=== PATIENT | male | born 1950 | race Caucasian/White ===

== ENCOUNTER 2016-09-30 19:07 | Inpatient (IN) | payer MEDICARE ==
[~2016-09-30] VITALS: Ht 180.3 cm; Wt 66.0 kg
[~2016-09-30 19:07] MED LIST: Folic Acid PO; MULT-484 PO; SERT50TA5 PO; THIA100T6 PO
[2016-09-30] MEDS ORDERED: SODIUM CHLORIDE FLUSH 10ML SYR IVF ONE (20:00)
[2016-09-30] MEDS ORDERED: SODIUM CHLORIDE 0.9% 1,000ML IVBOLUS ONE ×2 (20:00→20:30)
[2016-09-30] MEDS ORDERED: MORPHINE SULFATE 4 MG/ML, 1ML IVPush PRN (20:00)
[2016-09-30] MEDS ORDERED: ONDANSETRON 2MG/ML, 2ML IVPush ONE (20:00)
[2016-09-30] MEDS ORDERED: FAMOTIDINE 20 MG/2 ML IVP ONE (20:00)
[2016-09-30 20:10] LABS: HEMOGLOBIN 16.4 g/dL (13.7-18.0)
[2016-09-30 20:24] LABS: BLOOD UREA NITROGEN 2 mg/dL (7-18)
[2016-09-30 20:27] LABS: ASPARTATE AMINO TRANSFERASE 35 U/L (15-37)
[2016-09-30 20:37] LABS: MONOS WITH VACUOLES 1+
[2016-09-30] MEDS ORDERED: FAMOTIDINE 20 MG/2 ML ONE (20:54)
[2016-09-30] MEDS ORDERED: ONDANSETRON 2MG/ML, 2ML ONE (20:54)
[2016-09-30] MEDS ORDERED: MORPHINE SULFATE 4 MG/ML, 1ML ONE (20:54)
[2016-09-30] MEDS ORDERED: MAALOX/HYOSCYAMINE/LIDOCAINE 45 ML BOTTLE PO ONE (22:30)
[2016-09-30] MEDS ORDERED: MAALOX/HYOSCYAMINE/LIDOCAINE 45 ML BOTTLE ONE (22:31)
[2016-09-30] MEDS ORDERED: DOCUSATE 100 MG CAPSULE PO PRN (23:30)
[2016-09-30] MEDS ORDERED: LORazepam 2 MG/ML, 1ML IV PRN ×5 (23:30)
[2016-09-30] MEDS ORDERED: PROMETHAZINE 12.5 MG SUPP PR PRN (23:30)
[2016-10-01] MEDS ORDERED: POTASSIUM CHLORIDE 20 MEQ in SODIUM CHLORIDE 0.9% 250 ML IV ONE
[2016-10-01] MEDS: SODIUM CHLORIDE 0.9% 1,000 ML IV SCH ×3 (02:23→16:38)
[2016-10-01] MEDS ORDERED: LORazepam 2 MG/ML, 1ML ONE (05:02)
[2016-10-01] MEDS ORDERED: ONDANSETRON 2MG/ML, 2ML ONE (05:02)
[2016-10-01] MEDS: ONDANSETRON 2MG/ML, 2ML IV PRN (05:06)
[2016-10-01 08:30] VITALS: BP 111/67
[2016-10-01] MEDS: MULTIVITAMINS/MINERALS TABLET PO SCH (09:00)
[2016-10-01] MEDS ORDERED: LORazepam 1MG TABLET PO PRN ×3 (09:00)
[2016-10-01] MEDS ORDERED: LORazepam 2 MG/ML, 1ML IV PRN ×3 (09:00)
[2016-10-01] MEDS: POTASSIUM CHLORIDE 20 MEQ, MAGNESIUM SULFATE 1 GM, MVI ADULT 10 ML, THIAMINE 100 MG, FO... IV SCH (09:48)
[2016-10-01] MEDS: NICOTINE 21 MG/24 HR PATCH.TD24 TD SCH (09:49)
[2016-10-01 12:49] VITALS: BP 106/57
[2016-10-01] MEDS: LORazepam 2 MG/ML, 1ML IV PRN (16:38)
[2016-10-01 16:51] LABS: DAU SCREEN DISCLAIMER
[2016-10-01 20:37] VITALS: BP 117/71
[2016-10-02] MEDS: LORazepam 1MG TABLET PO PRN (01:40)
[2016-10-02 01:48] VITALS: BP 128/75
[2016-10-02 04:23] LABS: HEMOGLOBIN 14.8 g/dL (13.7-18.0)
[2016-10-02 04:37] LABS: BLOOD UREA NITROGEN 7 mg/dL (7-18)
[2016-10-02 04:41] LABS: ASPARTATE AMINO TRANSFERASE 25 U/L (15-37)
[2016-10-02] MEDS: ONDANSETRON 2MG/ML, 2ML IV PRN ×3 (05:58→23:46)
[2016-10-02 07:16] VITALS: BP 132/75
[2016-10-02] MEDS: LORazepam 2 MG/ML, 1ML IV PRN ×6 (10:17→23:46)
[2016-10-02] MEDS: POTASSIUM CHLORIDE 20 MEQ, MAGNESIUM SULFATE 1 GM, MVI ADULT 10 ML, THIAMINE 100 MG, FO... IV SCH (10:21)
[2016-10-02] MEDS: MULTIVITAMINS/MINERALS TABLET PO SCH (10:21)
[2016-10-02] MEDS: NICOTINE 21 MG/24 HR PATCH.TD24 TD SCH (10:21)
[2016-10-02] MEDS: ALUMINUM/MAG/SIMETHICONE 30 ML UDC PO PRN (12:14)
[2016-10-02 14:44] VITALS: BP 122/73
[2016-10-02 18:35] VITALS: BP 116/63
[2016-10-02] MEDS: SODIUM CHLORIDE 0.9% 1,000 ML IV SCH (19:53)
[2016-10-03 01:20] VITALS: BP 118/66
[2016-10-03] MEDS: LORazepam 2 MG/ML, 1ML IV PRN (01:22)
[2016-10-03] MEDS: SODIUM CHLORIDE 0.9% 1,000 ML IV SCH (05:17)
[2016-10-03 07:41] VITALS: BP 118/79
[2016-10-03 08:18] LABS: BLOOD UREA NITROGEN 5 mg/dL (7-18)
[2016-10-03] MEDS: MULTIVITAMINS/MINERALS TABLET PO SCH (08:34)
[2016-10-03] MEDS: LORazepam 1MG TABLET PO PRN (08:34)
[2016-10-03] MEDS: NICOTINE 21 MG/24 HR PATCH.TD24 TD SCH (08:34)
[2016-10-03] MEDS ORDERED: LORazepam 1MG TABLET ONE ×2 (11:19→17:37)
[2016-10-03] MEDS: ONDANSETRON 2MG/ML, 2ML IV PRN (11:23)
[2016-10-03] MEDS: LORazepam 0.5MG TABLET PO PRN ×2 (11:23→17:40)
[2016-10-03] MEDS: POTASSIUM CHLORIDE 20 MEQ, MAGNESIUM SULFATE 1 GM, MVI ADULT 10 ML, THIAMINE 100 MG, FO... IV SCH (11:26)
[2016-10-03 12:41] VITALS: BP 154/87
[2016-10-03 19:03] VITALS: BP 121/70
[2016-10-03] MEDS: DIPHENHYDRAMINE 50 MG CAPSULE PO PRN (21:03)
[2016-10-04 01:28] VITALS: BP 121/78
[2016-10-04] MEDS: SODIUM CHLORIDE 0.9% 1,000 ML IV SCH ×3 (01:54→20:01)
[2016-10-04] MEDS ORDERED: LORazepam 2 MG/ML, 1ML ONE (04:39)
[2016-10-04] MEDS: LORazepam 2 MG/ML, 1ML IV PRN (04:46)
[2016-10-04 05:03] LABS: ASPARTATE AMINO TRANSFERASE 27 U/L (15-37); BLOOD UREA NITROGEN 5 mg/dL (7-18)
[2016-10-04 05:57] LABS: ABG COLLECTION SITE RIGHT RADIAL; COLLATERAL CIRCULATION TESTING NORMAL; O2 FLOW ROOM AIR L/min
[2016-10-04 07:11] VITALS: BP 127/82
[2016-10-04] MEDS: NICOTINE 21 MG/24 HR PATCH.TD24 TD SCH ×2 (08:55→08:59)
[2016-10-04] MEDS: MULTIVITAMINS/MINERALS TABLET PO SCH ×2 (08:55→08:57)
[2016-10-04] MEDS: LORazepam 1MG TABLET PO PRN ×2 (09:13→21:34)
[2016-10-04] MEDS: ALUMINUM/MAG/SIMETHICONE 30 ML UDC PO PRN (11:19)
[2016-10-04] MEDS: POTASSIUM CHLORIDE 20 MEQ, MAGNESIUM SULFATE 1 GM, MVI ADULT 10 ML, THIAMINE 100 MG, FO... IV SCH (11:19)
[2016-10-04 12:48] VITALS: BP 128/76
[2016-10-04 19:36] VITALS: BP 120/74
[2016-10-04] MEDS: DIPHENHYDRAMINE 50 MG CAPSULE PO PRN (21:34)
[2016-10-05 02:15] VITALS: BP 125/78
[2016-10-05 04:18] VITALS: BP 122/68
[2016-10-05] MEDS: SODIUM CHLORIDE 0.9% 1,000 ML IV SCH ×2 (06:00→21:00)
[2016-10-05 07:55] VITALS: BP 120/77
[2016-10-05] MEDS: MULTIVITAMINS/MINERALS TABLET PO SCH (09:14)
[2016-10-05] MEDS: NICOTINE 21 MG/24 HR PATCH.TD24 TD SCH (09:14)
[2016-10-05] MEDS: POTASSIUM CHLORIDE 20 MEQ, MAGNESIUM SULFATE 1 GM, MVI ADULT 10 ML, THIAMINE 100 MG, FO... IV SCH (12:35)
[2016-10-05 14:52] VITALS: BP 125/78
[2016-10-05 18:54] VITALS: BP 122/82
[2016-10-05] MEDS: SUCRALFATE 1 GM/10 ML UDC PO SCH (20:51)
[2016-10-05] MEDS: TEMAZEPAM 15 MG CAPSULE PO PRN (20:52)
[2016-10-05] MEDS: OMEPRAZOLE 20 MG CAPSULE.DR PO SCH (22:10)
[2016-10-06 01:43] VITALS: BP 99/57
[2016-10-06 07:53] VITALS: BP 149/78
[2016-10-06] MEDS: FOLIC ACID 1 MG TABLET PO SCH (08:01)
[2016-10-06] MEDS: SODIUM CHLORIDE 0.9% 1,000 ML IV SCH (08:01)
[2016-10-06] MEDS: NICOTINE 21 MG/24 HR PATCH.TD24 TD SCH (08:01)
[2016-10-06] MEDS: MULTIVITAMINS/MINERALS TABLET PO SCH (08:01)
[2016-10-06] MEDS: OMEPRAZOLE 20 MG CAPSULE.DR PO SCH ×2 (08:01→19:53)
[2016-10-06] MEDS: THIAMINE 100MG TABLET PO SCH (08:01)
[2016-10-06] MEDS: SUCRALFATE 1 GM/10 ML UDC PO SCH ×4 (08:01→19:53)
[2016-10-06] MEDS ORDERED: MULTIVITAMIN 1 TABLET PO SCH (09:00)
[2016-10-06 11:23] LABS: OCCBLD OBC PASS
[2016-10-06 12:59] VITALS: BP 143/78
[2016-10-06] MEDS ORDERED: ERGOCALCIFEROL 50,000 UNIT CAPSULE PO SCH (17:00)
[2016-10-06 19:24] VITALS: BP 119/75
[2016-10-06] MEDS: TEMAZEPAM 15 MG CAPSULE PO PRN (22:05)
[2016-10-07 02:33] VITALS: BP 92/55
[2016-10-07] MEDS: SUCRALFATE 1 GM/10 ML UDC PO SCH ×2 (07:34→11:01)
[2016-10-07 08:36] VITALS: BP 123/84
[2016-10-07] MEDS: MULTIVITAMINS/MINERALS TABLET PO SCH (09:30)
[2016-10-07] MEDS: OMEPRAZOLE 20 MG CAPSULE.DR PO SCH (09:30)
[2016-10-07] MEDS: THIAMINE 100MG TABLET PO SCH (09:30)
[2016-10-07] MEDS: NICOTINE 21 MG/24 HR PATCH.TD24 TD SCH (09:30)
[2016-10-07] MEDS: FOLIC ACID 1 MG TABLET PO SCH (09:30)
[2016-10-07] MEDS ORDERED: MULT-484 PO (12:43)
[2016-10-07] MEDS ORDERED: FOLI-17 PO (12:43)
[2016-10-07] MEDS ORDERED: DOCU-30 PO (12:43)
[2016-10-07] MEDS ORDERED: ERGO500017 PO (12:43)
[2016-10-07] MEDS ORDERED: OMEP-110 PO (12:43)
[2016-10-07] MEDS ORDERED: THIA100T6 PO (12:43)
[2016-10-07] MEDS ORDERED: SUCR1ORA2 PO (12:43)
== END 2016-10-07 14:10 | disposition home or self-care (01) | DRG 896 ==
LOC: ED 22:10 → EDIP 22:31 → ICU 10-01 07:45 → 3NE 10-05 15:31 → DCLOUNGE 10-07 13:50
PROVIDERS: ADMIT Internal Medicine; ATTEND Internal Medicine
PROC: HZ2ZZZZ Detoxification Services for Substance Abuse Treatment (ICD-10-PCS; principal; 2016-09-30)
DX: F10.239 Alcohol dependence with withdrawal, unspecified (principal); E43 Unspecified severe protein-calorie malnutrition; R45.851 Suicidal ideations; K29.20 Alcoholic gastritis without bleeding; G40.909 Epilepsy, unspecified, not intractable, without status epilepticus; M81.0 Age-related osteoporosis without current pathological fracture; F12.90 Cannabis use, unspecified, uncomplicated; F32.9 Major depressive disorder, single episode, unspecified; E87.6 Hypokalemia; D72.829 Elevated white blood cell count, unspecified; E55.9 Vitamin D deficiency, unspecified; K70.9 Alcoholic liver disease, unspecified; Z68.20 Body mass index [BMI] 20.0-20.9, adult; Z87.891 Personal history of nicotine dependence; Z71.51 Drug abuse counseling and surveillance of drug abuser; Z71.41 Alcohol abuse counseling and surveillance of alcoholic
CPT/HCPCS: 36415; 36600; 71010; 76700; 80048; 80053; 80307; 82272; 82306; 82607; 82803; 83690; 83735; 84100; 85025; 85610; 96361; 96374; 96375; 96376; J2405; J3411; J3475; J3480; J2060; J7030; J7050; S0028